=== PATIENT | female | born 1980 | race Two or more races ===

== ENCOUNTER 2020-03-14 11:30 | Day surgery (SDC) | payer OTHER ==
[~2020-03-14 11:30] MED LIST: [UNRECOGNIZED DRUG - OTHER]
[2020-03-14] MEDS ORDERED: NAPROXEN500 MG PO (14:32)
[2020-03-14] MEDS ORDERED: ZITHROMAX500 MG PO (14:32)
== END 2020-03-14 19:25 | disposition home or self-care (01) ==
LOC: CIR.AMB 11:30
PROVIDERS: ATTEND Obstetrics & Gynecology
DX: N84.0 Polyp of corpus uteri (principal); Z20.828 Contact with and (suspected) exposure to other viral communicable diseases